=== PATIENT | male | born 1975 | race Two or more races ===

== ENCOUNTER 2019-02-15 21:18 | Emergency (ER) | payer SELFPAY ==
[~2019-02-15] VITALS: Ht 182.9 cm; Wt 87.0 kg
[2019-02-15] MEDS ORDERED: CLONIDINE 0.2MG TABLET PO ONE (23:45)
[2019-02-15] MEDS ORDERED: KETOROLAC 30MG/ML VIAL IV ONE (23:45)
[2019-02-16] MEDS ORDERED: CLONIDINE 0.1MG TABLET PO ONE (01:00)
[2019-02-16] MEDS ORDERED: AMLODIPINE 10MG TABLET PO ONE (01:00)
[2019-02-16 01:56] VITALS: BP 179/123
== END 2019-02-16 03:00 | disposition left against medical advice (07) ==
LOC: ER 21:18
DX: I10 Essential (primary) hypertension (principal); M54.2 Cervicalgia; M54.9 Dorsalgia, unspecified; R51 Headache; V49.88XA Car occupant (driver) (passenger) injured in other specified transport accidents, initial encounter; Y93.89 Activity, other specified; Y92.89 Other specified places as the place of occurrence of the external cause; Y99.8 Other external cause status
CPT/HCPCS: 96374; 99284; J1885

== ENCOUNTER 2021-05-17 15:30 | Emergency (ER) | payer MEDICAID ==
[~2021-05-17] VITALS: Ht 175.3 cm; Wt 82.0 kg
[2021-05-17] MEDS ORDERED: DOXYCYCLINE HYCLATE 100MG CAPSULE PO ONE (16:30)
[2021-05-17] MEDS ORDERED: CEFTRIAXONE SODIUM 500 MG/VIAL IM ONE (16:30)
[2021-05-17 16:42] LABS: CLARITY URINE CLEAR (CLEAR); COLOR URINE YELLOW (YELLOW); KETONES URINE NEGATIVE (NEGATIVE); LEUKOCYTE ESTERASE URINE NEGATIVE (NEGATIVE); NITRITE URINE NEGATIVE (NEGATIVE); OCCULT BLOOD URINE NEGATIVE (NEGATIVE); PH URINE 6.5 (4.5-8.0); PROTEIN URINE TRACE (NEGATIVE); SPECIFIC GRAVITY URINE 1.014 (1.005-1.030)
[2021-05-17 17:04] LABS: BASOPHILS % 0.8 % (0.0-2.0); EOSINOPHILS % 1.5 % (0.0-5.0); HEMATOCRIT. 41.1 % (42.0-52.0); HEMOGLOBIN. 14.5 g/dL (14.0-18.0); LYMPHOCYTES % 25.7 % (20.0-50.0); MEAN CORPUSCULAR HEMOGLOBIN 28.8 pg (28.0-32.0); MEAN CORPUSCULAR VOLUME 81.8 fL (80.0-94.0); MEAN PLATELET VOLUME 9.1 fl (7.4-10.4); MONOCYTES % 8.4 % (2.0-8.0); NEUTROPHILS % 63.6 % (40.0-76.0); PLATELET 253 x1000/uL (130-400); RED BLOOD CELL COUNT 5.02 mill/uL (4.7-6.1); RED CELL DISTRIBUTION WIDTH 12.9 % (11.6-14.6)
[2021-05-17 17:09] LABS: CHLORIDE 104 mEq/L (98-107)
[2021-05-17 17:11] LABS: PROTHROMBIN TIME 10.9 sec (9.6-11.0)
[2021-05-17] MEDS ORDERED: DOXY100T2 MT (18:01)
[2021-05-17] MEDS ORDERED: ENALAPRIL 5MG TABLET PO SCH (19:15)
[2021-05-17] MEDS ORDERED: ENAL10TA19 MT (19:42)
[2021-05-17 19:49] VITALS: BP 205/129
== END 2021-05-17 19:57 | disposition home or self-care (01) ==
LOC: ER 15:30
DX: I10 Essential (primary) hypertension (principal); N34.2 Other urethritis
CPT/HCPCS: 36415; 80053; 81003; 83690; 85025; 85610; 96372; 99283; J0696

== ENCOUNTER 2021-05-31 15:26 | Inpatient (IN) | payer MEDICAID ==
[~2021-05-31] VITALS: Ht 172.7 cm; Wt 82.6 kg
[~2021-05-31 15:26] MED LIST: DOXY100T2 MT; ENAL10TA19 MT
[2021-05-31] MEDS ORDERED: HYDRALAZINE 20MG/ML VIAL IV ONE ×2 (16:30→19:15)
[2021-05-31] MEDS ORDERED: MORPHINE SULFATE 4 MG/ML CPJ (NOT FOR IM USE) IV STA (16:30)
[2021-05-31] MEDS ORDERED: ONDANSETRON HCL 4MG/2ML INJ IV STA (16:30)
[2021-05-31] MEDS ORDERED: AMLODIPINE 5MG TABLET PO ONE (17:00)
[2021-05-31] MEDS ORDERED: LEVOFLOXACIN 500MG TABLET PO ONE (17:00)
[2021-05-31 17:15] LABS: BASOPHILS % 0.4 % (0.0-2.0); EOSINOPHILS % 0.7 % (0.0-5.0); HEMATOCRIT. 43.2 % (42.0-52.0); HEMOGLOBIN. 15.1 g/dL (14.0-18.0); MEAN CORPUSCULAR HEMOGLOBIN 28.9 pg (28.0-32.0); MEAN CORPUSCULAR VOLUME 82.3 fL (80.0-94.0); MEAN PLATELET VOLUME 9.2 fl (7.4-10.4); MONOCYTES % 6.4 % (2.0-8.0); NEUTROPHILS % 74.5 % (40.0-76.0); PLATELET 224 x1000/uL (130-400); RED BLOOD CELL COUNT 5.24 mill/uL (4.7-6.1)
[2021-05-31 17:23] LABS: CHLORIDE 103 mEq/L (98-107)
[2021-05-31] MEDS ORDERED: CLONIDINE 0.1MG TABLET PO PRN (19:45)
[2021-05-31] MEDS ORDERED: DOCUSATE SODIUM 100MG CAPSULE PO PRN (19:45)
[2021-05-31] MEDS ORDERED: ONDANSETRON HCL 4MG/2ML INJ IV PRN (19:45)
[2021-05-31] MEDS ORDERED: ACETAMINOPHEN 325MG TABLET PO PRN ×2 (19:45)
[2021-05-31] MEDS ORDERED: NITROGLYCERIN 0.4MG TABLET SL SL PRN (19:45)
[2021-05-31] MEDS ORDERED: MAGNESIUM/ALUMINUM HYDROXIDE/SIMETHICONE 30ML UDC PO PRN (19:45)
[2021-05-31] MEDS ORDERED: KETOROLAC 15MG/ML VIAL IV PRN (19:45)
[2021-05-31] MEDS ORDERED: IPRATROPIUM/ALBUTEROL 0.5-3(2.5)MG/3ML NEB NEB PRN (19:45)
[2021-05-31] MEDS ORDERED: GUAIFENESIN 200MG/10ML SUGAR FREE UDC PO PRN (19:45)
[2021-05-31 20:00] LABS: ETHANOL BLOOD < 10 mg/dL
[2021-05-31 20:01] LABS: LDL CHOLESTEROL 138 mg/dL (5-100); TOTAL IRON BINDING CAPACITY 302 ug/dL (250-450)
[2021-05-31 20:03] LABS: HDL CHOLESTEROL 60 mg/dL (40-59)
[2021-05-31 20:14] LABS: FOLIC ACID (FOLATE) SERUM >20 ng/mL ng/mL (>5.38)
[2021-05-31] MEDS ORDERED: SODIUM CHLORIDE 0.9% 500 ML IV ONE (20:15)
[2021-05-31 20:26] LABS: VITAMIN B12 SERUM 583 pg/mL (211-911)
[2021-05-31] MEDS ORDERED: POTASSIUM CHLORIDE 20MEQ TABLET SR PO NR (20:30)
[2021-05-31 20:53] LABS: FERRITIN 87 ng/mL (22-322)
[2021-05-31] MEDS ORDERED: ZOLPIDEM TARTRATE 5MG TABLET PO PRN (21:00)
[2021-05-31 21:01] VITALS: BP 156/96
[2021-05-31] MEDS: ENOXAPARIN 40MG/0.4ML SYR SUBCUT SCH (21:59)
[2021-05-31] MEDS: METOPROLOL TARTRATE 25MG TABLET PO SCH (21:59)
[2021-05-31 22:00] VITALS: BP 154/78
[2021-05-31] MEDS: FAMOTIDINE 20MG TABLET PO SCH (22:00)
[2021-05-31] MEDS: LISINOPRIL 20MG TABLET PO SCH (22:00)
[2021-05-31] MEDS: HYDRALAZINE HCL 50MG TABLET PO SCH (22:01)
[2021-06-01] VITALS (11 sets, daily range): BP systolic 114–151; BP diastolic 59–95
[2021-06-01 00:17] LABS: CREATINE KINASE 65 IU/L (39-308)
[2021-06-01 00:18] LABS: CREATINE KINASE MB FRACTION < 1.0 ng/mL (0.5-3.6)
[2021-06-01] MEDS: HYDRALAZINE HCL 50MG TABLET PO SCH ×3 (05:20→21:02)
[2021-06-01 07:15] LABS: BASOPHILS % 0.6 % (0.0-2.0); EOSINOPHILS % 1.5 % (0.0-5.0); HEMATOCRIT. 40.7 % (42.0-52.0); HEMOGLOBIN. 14.1 g/dL (14.0-18.0); MEAN CORPUSCULAR HEMOGLOBIN 28.9 pg (28.0-32.0); MEAN CORPUSCULAR VOLUME 83.7 fL (80.0-94.0); MEAN PLATELET VOLUME 9.7 fl (7.4-10.4); MONOCYTES % 8.9 % (2.0-8.0); PLATELET 223 x1000/uL (130-400); RED BLOOD CELL COUNT 4.87 mill/uL (4.7-6.1); RED CELL DISTRIBUTION WIDTH 13.1 % (11.6-14.6)
[2021-06-01 07:21] LABS: CHLORIDE 109 mEq/L (98-107)
[2021-06-01 07:27] LABS: PHOSPHORUS 3.1 mg/dL (2.5-4.9)
[2021-06-01 07:30] LABS: CREATINE KINASE 66 IU/L (39-308)
[2021-06-01 07:32] LABS: CREATINE KINASE MB FRACTION < 1.0 ng/mL (0.5-3.6)
[2021-06-01] MEDS: METOPROLOL TARTRATE 25MG TABLET PO SCH ×2 (09:02→21:02)
[2021-06-01] MEDS: LISINOPRIL 20MG TABLET PO SCH ×2 (09:02→21:02)
[2021-06-01] MEDS: AMLODIPINE 10MG TABLET PO SCH (09:03)
[2021-06-01] MEDS: FAMOTIDINE 20MG TABLET PO SCH ×2 (09:03→21:02)
[2021-06-01 18:55] LABS: CLARITY URINE CLEAR (CLEAR); COLOR URINE YELLOW (YELLOW); KETONES URINE NEGATIVE (NEGATIVE); LEUKOCYTE ESTERASE URINE NEGATIVE (NEGATIVE); NITRITE URINE NEGATIVE (NEGATIVE); OCCULT BLOOD URINE NEGATIVE (NEGATIVE); PROTEIN URINE NEGATIVE (NEGATIVE); SPECIFIC GRAVITY URINE 1.007 (1.005-1.030); UROBILINOGEN URINE 0.2 E.U./dL (0.2-1.0)
[2021-06-01 19:05] LABS: *BARBITURATES SCREEN URINE NEGATIVE (NEGATIVE)
[2021-06-01 19:06] LABS: *AMPHETAMINES SCREEN URINE NEGATIVE (NEGATIVE); *BENZODIAZEPINES SCREEN URINE NEGATIVE (NEGATIVE); *COCAINE SCREEN URINE NEGATIVE (NEGATIVE); METHADONE URINE SCREEN NEGATIVE (NEGATIVE); OPIATES URINE SCREEN NEGATIVE (NEGATIVE)
[2021-06-01 19:07] LABS: CANNABINOID URINE SCREEN NEGATIVE (NEGATIVE); PHENCYCLIDINE URINE SCREEN NEGATIVE (NEGATIVE)
[2021-06-01] MEDS: ENOXAPARIN 40MG/0.4ML SYR SUBCUT SCH (21:02)
[2021-06-02 00:01] VITALS: BP 110/66
[2021-06-02 02:00] VITALS: BP 116/52
[2021-06-02 04:00] VITALS: BP 130/77
[2021-06-02] MEDS: HYDRALAZINE HCL 50MG TABLET PO SCH (05:35)
[2021-06-02 06:00] VITALS: BP 121/83
[2021-06-02 08:00] VITALS: BP 143/87
[2021-06-02] MEDS: FAMOTIDINE 20MG TABLET PO SCH (08:37)
[2021-06-02] MEDS: LISINOPRIL 20MG TABLET PO SCH (08:37)
[2021-06-02] MEDS: AMLODIPINE 10MG TABLET PO SCH (08:37)
[2021-06-02] MEDS: METOPROLOL TARTRATE 25MG TABLET PO SCH (08:37)
[2021-06-02 10:04] VITALS: BP 148/99
== END 2021-06-02 12:06 | disposition home or self-care (01) | DRG 199 ==
LOC: ER 15:26 → 3WST 17:10 → ENRESERV 18:44
PROVIDERS: ADMIT Internal Medicine; ATTEND Internal Medicine
DX: I16.1 Hypertensive emergency (principal); I50.33 Acute on chronic diastolic (congestive) heart failure; I11.0 Hypertensive heart disease with heart failure; E87.6 Hypokalemia
CPT/HCPCS: 36415; 71045; 80053; 80061; 80305; 80320; 81003; 82550; 82553; 82607; 82728; 82746; 83036; 83540; 83550; 83605; 83735; 83880; 84100; 84443; 84484; 85025; 93005; 93306; 93970; 99285; J0360; J1650; J2270; J2405; J7040; G0480